=== PATIENT | male | born 1960 | race Caucasian/White ===

== ENCOUNTER 2018-02-17 17:43 | Emergency (ER) | payer BC ==
[~2018-02-17] VITALS: Ht 170.2 cm; Wt 113.4 kg
[~2018-02-17 17:43] MED LIST: ACETAMINOPHEN-1 EAC1 PO; AMOXICILLIN 50500 M1 PO; AMOXICILLIN500 M1 PO; ASPIRIN325 PO; AUGMENTIN 875875 MG PO; BENTYL 20 MG TA20 M1 PO; CARVEDILOL12.5 MG PO; CIPRO500 MG PO; COREG12.5 MG PO; CYMBALTA20 MG PO; CYMBALTA60 MG PO; FLAGYL500 MG PO; FLEXERIL PO; FLONASE 0.05%50 MCG NASAL; HYDROCODON-ACE1 EAC7 PO; HYDROCODONE-AP1 EAC6 PO; LASIX 40 MG TAB40 M1 PO; LIORESAL 10 MG10 MG PO; LYRICA 75 MG CA75 MG PO; MULTIVITAMIN PO; MULTIVITAMINS1 EAC7; NAPROSYN500 MG PO; NOHOMEMEDICATIONS; NORCO 5-325 TA1 EAC1 PO; NORCO 5-325 TA1 EACH PO; PHENAZOPYRIDIN200 M2 PO; TRAMADOL 50 MG50 MG PO; ULTRAM 50MG TAB50 MG PO; ULTRAM50 MG PO; UNICOMPLEX M TA1 TA1 PO; VITAMIN D1000 UNI1 PO; ZOFRAN 4 MG ORAL4 MG PO
[2018-02-17] MEDS ORDERED: NORCO 5-325 TA1 EACH PO (18:21)
[2018-02-17 18:55] VITALS: BP 160/72
== END 2018-02-17 18:56 | disposition home or self-care (01) ==
LOC: M.ERS 17:43
DX: S67.02XA Crushing injury of left thumb, initial encounter (principal); Z85.038 Personal history of other malignant neoplasm of large intestine; Z88.8 Allergy status to other drugs, medicaments and biological substances; W23.0XXA Caught, crushed, jammed, or pinched between moving objects, initial encounter; Y93.89 Activity, other specified; Y92.89 Other specified places as the place of occurrence of the external cause; Y99.8 Other external cause status

== ENCOUNTER 2018-03-06 14:38 | Emergency (ER) | payer BC ==
[~2018-03-06] VITALS: Ht 170.2 cm; Wt 113.4 kg
[2018-03-06] MEDS ORDERED: LIPITOR10 MG PO (14:45)
[2018-03-06] MEDS ORDERED: BYSTOLIC2.5 MG PO (14:45)
[2018-03-06] MEDS ORDERED: NORCO 5-325 TA1 EACH PO (16:06)
[2018-03-06 16:27] VITALS: BP 148/98
== END 2018-03-06 16:28 | disposition home or self-care (01) ==
LOC: M.ERS 14:38
DX: S80.11XA Contusion of right lower leg, initial encounter (principal); Z85.038 Personal history of other malignant neoplasm of large intestine; Z87.442 Personal history of urinary calculi; Z98.890 Other specified postprocedural states; Z88.8 Allergy status to other drugs, medicaments and biological substances; W11.XXXA Fall on and from ladder, initial encounter; Y93.89 Activity, other specified; Y92.89 Other specified places as the place of occurrence of the external cause; Y99.8 Other external cause status

== ENCOUNTER 2018-03-16 19:01 | Emergency (ER) | payer BC ==
[~2018-03-16] VITALS: Ht 170.2 cm; Wt 113.4 kg
[~2018-03-16 19:01] MED LIST changes: +BYSTOLIC2.5 MG PO; +LIPITOR10 MG PO
[2018-03-16] MEDS ORDERED: ACETAMINOPHEN-1 EAC1 (19:10)
[2018-03-16] MEDS ORDERED: NEURONTIN 300300 M1 (19:11)
[2018-03-16 21:40] VITALS: BP 122/72
== END 2018-03-16 21:42 | disposition home or self-care (01) ==
LOC: M.ERS 19:01
DX: R60.0 Localized edema (principal); Z88.8 Allergy status to other drugs, medicaments and biological substances; Z87.442 Personal history of urinary calculi

== ENCOUNTER 2019-02-15 19:49 | Emergency (ER) | payer BC ==
[~2019-02-15] VITALS: Ht 170.2 cm; Wt 117.9 kg
[~2019-02-15 19:49] MED LIST changes: +ACETAMINOPHEN-1 EAC1; +NEURONTIN 300300 M1
[2019-02-15 20:48] LABS: ABSOLUTE BASOPHILS 0.1 thou/uL (0.0-0.2); ABSOLUTE EOSINOPHILS 0.2 thou/uL (0.0-0.7); ABSOLUTE LYMPHOCYTES 2.3 thou/uL (0.8-5.3); ABSOLUTE MONOCYTES 0.5 thou/uL (0.0-1.2); ABSOLUTE NEUTROPHILS 3.2 thou/uL (1.6-8.1); BASOPHILS 0.9 %; EOSINOPHILS 2.6 %; HEMATOCRIT 37.6 % (42.0-52.0); HEMOGLOBIN 12.7 gm/dL (14.0-18.0); LYMPHOCYTES 36.8 %; MCH 31.2 pg (26.0-34.0); MCHC 33.8 g/dL (28.0-37.0); MCV 92.4 fL (80.0-100.0); MPV 6.9 fl. (7.2-11.1); NUCLEATED RBCS 0 /100WBC; PLATELET COUNT* 288 thou/uL (150-400); POLYS 51.7 %; RBC 4.07 mil/uL (4.50-6.00); RDW-CV 13.5 % (10.5-14.5); WBC 6.1 thou/uL (4.0-11.0)
[2019-02-15 20:56] LABS: ANION GAP 9 mmol/L (7-16); BUN 13 mg/dL (7-18); CALCIUM 8.7 mg/dL (8.5-10.1); CHLORIDE 107 mmol/L (98-107); CO2 28 mmol/L (21-32); CREATININE 0.8 mg/dL (0.6-1.3); GLUCOSE 103 mg/dL (70-99); POTASSIUM 3.4 mmol/L (3.5-5.1); SODIUM 144 mmol/L (136-145)
[2019-02-15 21:07] LABS: ALBUMIN 3.5 g/dL (3.4-5.0); ALKALINE PHOSPHATASE 82 U/L (46-116); NT-PRO BRAIN NAT PEPTIDE 40 pg/mL (<300); SGOT 17 U/L (15-37); SGPT 29 U/L (30-65); TOTAL BILIRUBIN 0.2 mg/dL (<0.1-1.0); TOTAL PROTEIN 6.5 g/dL (6.4-8.2); TROPONIN-I LEVEL <0.06 ng/mL (<0.06)
[2019-02-15] MEDS ORDERED: NORCO 5-325 TA1 EAC1 PO (21:29)
[2019-02-15] MEDS ORDERED: NABUMETONE 750750 M1 PO (21:29)
[2019-02-15] MEDS ORDERED: ZANAFLEX4 MG PO (21:29)
[2019-02-15] MEDS ORDERED: COMPRESSION TH1 EACH MISCELL (21:29)
[2019-02-15 21:47] VITALS: BP 122/61
--- NOTE | 2019-02-16 17:57 | EKG ---
[place] [address] ELECTROCARDIOGRAM REPORT Name: TONIO ROSA Room: [facility]#: [id number] Admission: 02/15/19 Attend Phys: Discharge: 02/15/19 Date of : 60 Report #: [id number] THIS REPORT FOR: //name// [facility] ED Test Date: 2019-02-15 Test Time: 21:09:42 Pat Name: TONIO ROSA Department: Room: Gender: M [employer]: [place] : 1960 Requested By: Maude Sherman Order Number: [id number] MD: Angel Robison Measurements Intervals [place] Rate: 69 P: 32 [place]: 194 QRS: 19 QRSD: 107 T: 34 QT: 388 QTc: 416 Interpretive Statements Sinus rhythm Compared to ECG 11/15/2016 20:41:07 No significant changes Electronically Signed On 02-16-2019 17:57:14 CDT by Angel Robison [email or web address] <ELECTRONICALLY SIGNED> By: Angel Robison MD, [facility] 02/16/19 1757 [id number] Angel Robison MD, FACC /EPI
== END 2019-02-15 21:47 | disposition home or self-care (01) ==
LOC: M.ERS 19:49
PROVIDERS: Nurse Practitioner Family
DX: R60.0 Localized edema (principal); M54.5 Low back pain; G89.29 Other chronic pain; Z88.8 Allergy status to other drugs, medicaments and biological substances; Z85.038 Personal history of other malignant neoplasm of large intestine; Z87.442 Personal history of urinary calculi

== ENCOUNTER 2019-07-04 18:40 | Emergency (ER) | payer BC ==
[~2019-07-04] VITALS: Ht 170.2 cm; Wt 117.9 kg
[~2019-07-04 18:40] MED LIST changes: +COMPRESSION TH1 EACH MISCELL; +NABUMETONE 750750 M1 PO; +ZANAFLEX4 MG PO
[2019-07-04] MEDS ORDERED: CYMBALTA60 MG PO (18:52)
[2019-07-04] MEDS ORDERED: NEURONTIN300 MG PO (18:52)
[2019-07-04] MEDS ORDERED: CARVEDILOL12.5 MG PO (18:52)
[2019-07-04] MEDS ORDERED: TYLENOL WITH CO1 TA1 PO (19:12)
[2019-07-04] MEDS ORDERED: NAPROSYN500 MG PO (19:12)
[2019-07-04 19:37] VITALS: BP 146/79
== END 2019-07-04 19:38 | disposition home or self-care (01) ==
LOC: M.ERS 18:40
DX: M25.551 Pain in right hip (principal); Z88.8 Allergy status to other drugs, medicaments and biological substances; Z85.038 Personal history of other malignant neoplasm of large intestine; Z87.442 Personal history of urinary calculi

== ENCOUNTER 2019-08-09 07:15 | Emergency (ER) | payer OTHER ==
[~2019-08-09] VITALS: Ht 170.2 cm; Wt 73.5 kg
[~2019-08-09 07:15] MED LIST changes: +NEURONTIN300 MG PO; +TYLENOL WITH CO1 TA1 PO
[2019-08-09 08:03] LABS: INFLUENZA A ANTIGEN Negative (Negative); INFLUENZA B ANTIGEN Negative (Negative)
[2019-08-09] MEDS ORDERED: PREDNISONE 20 M20 M1 PO (08:22)
[2019-08-09] MEDS ORDERED: ZPAK PO (08:22)
[2019-08-09 08:40] VITALS: BP 148/84
== END 2019-08-09 08:42 | disposition home or self-care (01) ==
LOC: M.ERS 07:15
PROVIDERS: Family Medicine
DX: B34.9 Viral infection, unspecified (principal); J40 Bronchitis, not specified as acute or chronic; Z88.8 Allergy status to other drugs, medicaments and biological substances; Z87.442 Personal history of urinary calculi

== ENCOUNTER 2019-08-18 17:13 | Emergency (ER) | payer OTHER ==
[~2019-08-18] VITALS: Ht 170.2 cm; Wt 117.9 kg
[~2019-08-18 17:13] MED LIST changes: +PREDNISONE 20 M20 M1 PO; +ZPAK PO
[2019-08-18] MEDS ORDERED: CARVEDILOL25 MG PO (17:22)
[2019-08-18] MEDS ORDERED: CYMBALTA30 MG PO (17:22)
[2019-08-18] MEDS ORDERED: LIPITOR40 MG PO (17:22)
[2019-08-18] MEDS ORDERED: MAXIMUM DAILY1 EACH PO (17:22)
[2019-08-18] MEDS ORDERED: NEURONTIN 300M300 M2 PO (17:23)
[2019-08-18] MEDS ORDERED: AMOXICILLIN 50500 MG PO (19:58)
[2019-08-18] MEDS ORDERED: TYLENOL WITH CO1 TA1 PO (19:58)
[2019-08-18 20:19] VITALS: BP 147/91
== END 2019-08-18 20:20 | disposition home or self-care (01) ==
LOC: M.ERS 17:13
DX: K04.7 Periapical abscess without sinus (principal); M54.2 Cervicalgia; Z88.8 Allergy status to other drugs, medicaments and biological substances; Z87.442 Personal history of urinary calculi

== ENCOUNTER 2020-09-25 11:09 | Emergency (ER) | payer OTHER ==
[~2020-09-25] VITALS: Ht 170.2 cm; Wt 131.5 kg
[~2020-09-25 11:09] MED LIST changes: +AMOXICILLIN 50500 MG PO; +CARVEDILOL25 MG PO; +CYMBALTA30 MG PO; +LIPITOR40 MG PO; +MAXIMUM DAILY1 EACH PO; +NEURONTIN 300M300 M2 PO
[2020-09-25] MEDS ORDERED: NORVASC 2.5 MG2.5 M1 PO (11:28)
[2020-09-25] MEDS ORDERED: NEURONTIN 300M300 M2 PO (11:28)
[2020-09-25] MEDS ORDERED: CARISOPRODOL350 MG PO (11:29)
[2020-09-25] MEDS ORDERED: OXYBUTYNIN 5 MG5 M1 PO (11:29)
[2020-09-25] MEDS ORDERED: MELOXICAM15 MG PO (11:29)
[2020-09-25] MEDS ORDERED: HYDROCODON-ACE1 EAC7 PO (12:48)
[2020-09-25 12:57] VITALS: BP 148/90
== END 2020-09-25 12:58 | disposition home or self-care (01) ==
LOC: M.ERS 11:09
DX: M25.551 Pain in right hip (principal); Z88.8 Allergy status to other drugs, medicaments and biological substances; Z85.038 Personal history of other malignant neoplasm of large intestine; Z96.641 Presence of right artificial hip joint; Z87.442 Personal history of urinary calculi

== ENCOUNTER 2020-12-23 19:38 | Emergency (ER) | payer OTHER ==
[~2020-12-23] VITALS: Ht 170.2 cm; Wt 122.5 kg
[~2020-12-23 19:38] MED LIST changes: +CARISOPRODOL350 MG PO; +MELOXICAM15 MG PO; +NORVASC 2.5 MG2.5 M1 PO; +OXYBUTYNIN 5 MG5 M1 PO
[2020-12-23] MEDS ORDERED: NORCO5 PO (22:02)
[2020-12-23] MEDS ORDERED: HYDROCODON-ACE1 EAC7 PO (22:07)
[2020-12-23 22:13] VITALS: BP 145/96
[2020-12-23] MEDS ORDERED: DOXYCYCLINE 10100 MG PO (22:16)
== END 2020-12-23 22:14 | disposition home or self-care (01) ==
LOC: M.ERS 19:38
DX: M79.662 Pain in left lower leg (principal); L53.9 Erythematous condition, unspecified; M79.89 Other specified soft tissue disorders; I10 Essential (primary) hypertension; Z96.641 Presence of right artificial hip joint; Z87.442 Personal history of urinary calculi; Z85.038 Personal history of other malignant neoplasm of large intestine; Z79.899 Other long term (current) drug therapy; Z88.8 Allergy status to other drugs, medicaments and biological substances

== ENCOUNTER 2021-04-22 07:19 | Emergency (ER) | payer OTHER ==
[~2021-04-22] VITALS: Ht 170.2 cm; Wt 117.9 kg
[~2021-04-22 07:19] MED LIST changes: +DOXYCYCLINE 10100 MG PO; +NORCO5 PO
[2021-04-22] MEDS ORDERED: HYDROCODON-ACE1 EAC7 PO (08:36)
[2021-04-22 08:40] VITALS: BP 173/102
== END 2021-04-22 08:41 | disposition home or self-care (01) ==
LOC: M.ERS 07:19
DX: S86.912A Strain of unspecified muscle(s) and tendon(s) at lower leg level, left leg, initial encounter (principal); I10 Essential (primary) hypertension; Z79.899 Other long term (current) drug therapy; W22.8XXA Striking against or struck by other objects, initial encounter; Y93.89 Activity, other specified; Y92.89 Other specified places as the place of occurrence of the external cause; Y99.8 Other external cause status